=== PATIENT | female | born 1995 | race Caucasian/White ===

== ENCOUNTER → 2017-10-01 04:10 | Emergency (ER) | payer OTHER ==
[~2017-10-01 04:10] MED LIST: Al Hydrox/Mg Hydrox/Simet LIQ* 30 ML UDC PO ONE; Lidocaine 2% VISCOUS* 15 ML UDC PO ONE; Metoclopramide IV* 5 MG/ML 2 ML VIAL IV ONE; Morphine INJ* 2 MG/ML 1 ML SYRINGE (TWO MG - NEW SYRINGE VERSION) IV ONE; NS 0.9% 1000 ML* 1,000 ML IV ONE; Pantoprazole IV* 40 MG IV ONE; Potassium Chlor TAB* 20 MEQ TAB.ER PO ONE
--- NOTE | 2017-10-01 04:28 | ED ---
Abdominal Pain/Female - HPI Summary HPI Summary: This is scribe Be Page documenting for attending Humble Lai MD. A 21 y/o female presents to ED c/o epigastric abdominal pain reaching 10/10 in severity. Additionally c/o chest and back pain. As per triage, "Pt c/o epigastric pain that woke her up this morning. Pt attempted to drink water and baking soda mixture with no relief". According to the patient, she has been experiencing severe abdominal pain since 319 as it woke her up from her sleep. Now the pain which is originating from her abdomen is radiating to her chest and lower back. Pt denies any vomiting or diarrhea. No prior surgeries. Patient took no medications for pain except baking soda and water as she thought it was heartburn. Pt ate salmon, rice and potatoes for dinner. PMHx of depression and anxiety, currently makes Lexapro 5 mg daily. I, Dr. Lai, personally performed the services described in this documentation as scribed in my presence and it is both accurate and complete. - History of Current Complaint Chief Complaint: EDAbdPain Stated Complaint: ABD PAIN Time Seen by Provider: 10/01/17 04:17 Hx Obtained From: Patient Onset/Duration: Sudden Onset, Lasting Hours, Still Present, Worse Since - Onset Timing: Constant Severity Initially: Severe Severity Currently: Severe Pain Intensity: 10 Pain Scale Used: 0-10 Numeric Location: Epigastric Radiates: Yes Radiates to: Back - Lower, Chest Aggravating Factor(s): Nothing Alleviating Factor(s): Nothing Associated Signs and Symptoms: Positive: Chest Pain, Back Pain. Negative: Vomiting, Diarrhea Allergies/Adverse Reactions: Allergies Allergy/AdvReac Type Severity Reaction Status Date / Time latex Allergy Rash Verified 10/01/17 04:15 PMH/Surg Hx/FS Hx/Imm Hx Endocrine/Hematology History: Denies: Hx Diabetes Cardiovascular History: Denies: Hx Hypertension Psychiatric History: Reports: Hx Anxiety, Hx Depression Infectious Disease History: No Infectious Disease History: Reports: Traveled Outside the in Last 30 Days - [place] - Family History Known Family History: Positive: Other - RA in mother and materal grandmother - Social History Alcohol Use: Occasionally Hx Substance Use: No Substance Use Type: Reports: None Hx Tobacco Use: No Smoking Status (MU): Never Smoked Tobacco Review of Systems Negative: Fever Positive: Chest Pain Positive: Abdominal Pain. Negative: Vomiting, Diarrhea Positive: Other - POSITIVE: Back pain All Other Systems Reviewed And Are Negative: Yes Physical Exam - Summary Physical Exam Summary: VITAL SIGNS: Reviewed. GENERAL: Patient is a well-developed and nourished female who is lying comfortable in the stretcher. Patient is not in any acute respiratory distress. HEAD AND FACE: No signs of trauma. No ecchymosis, hematomas or skull depressions. No sinus tenderness. EYES: PERRLA, EOMI x 2, No injected conjunctiva, no nystagmus. EARS: Hearing grossly intact. Ear canals and tympanic membranes are within normal limits. MOUTH: Oropharynx within normal limits. NECK: Supple, trachea is midline, no adenopathy, no JVD, no carotid bruit, no c- spine tenderness, neck with full ROM. CHEST: Symmetric, no tenderness at palpation LUNGS: Clear to auscultation bilaterally. No wheezing or crackles. CVS: Regular rate and rhythm, S1 and S2 present, no murmurs or gallops appreciated. ABDOMEN: Soft, epigastric tenderness. No signs of distention. No rebound no guarding, and no masses palpated. Bowel sounds are normal. EXTREMITIES: FROM in all major joints, no edema, no cyanosis or clubbing. NEURO: Alert and oriented x 3. No acute neurological deficits. Speech is normal and follows commands. SKIN: Dry and warm Triage Information Reviewed: Yes Vital Signs On Initial Exam: Initial Vitals Temp Pulse Resp BP Pulse Ox 97.4 F 89 20 136/94 98 10/01/17 04:13 10/01/17 04:13 10/01/17 04:13 10/01/17 04:13 10/01/17 04:13 Vital Signs Reviewed: Yes Diagnostics - Vital Signs Vital Signs Temp Pulse Resp BP Pulse Ox 10/01/17 04:13 97.4 F 89 20 136/94 98 - Laboratory Result Diagrams: 10/01/17 04:35 10/01/17 04:35 Lab Statement: Any lab studies that have been ordered have been reviewed, and results considered in the medical decision making process. Re-Evaluation - Re-Evaluation First Eval Re-Evaluation Time: 05:23 Change: Improved Comment: Patient is feeling much better and her pain is gone. Abdominal Pain Fem Course/Dx - Course Course Of Treatment: A 21 y/o female presents to ED c/o epigastric abdominal pain reaching 10/10 in severity. Additionally c/o chest and back pain. Examination revealed epigastric tenderness. No laboratory scans were done. Blood work was done. In the ED course, the patient recieved Maalox, Xylocaine, Reglan, Protonix, Klor Con Er Tab and IV fluids. During reevaluation, the patient indicated that she was feeling better and pain was gone. Patient will be discharged with a diagnosis of GERD. Patient will be sent home with prescription of Pantoprazole. Patient is to follow up with PCP in 1-2 days. Patient is agreeable with this plan. - Diagnoses Provider Diagnoses: GERD (gastroesophageal reflux disease) Discharge - Sign-Out/Discharge Documenting (check all that apply): Patient Departure - DISCHARGE - Discharge Plan Condition: Stable Disposition: HOME Prescriptions: Pantoprazole TAB (NF) [Protonix TAB (NF)] 40 mg PO DAILY #30 tab Patient Education Materials: Gastroesophageal Reflux Disease (ED) Referrals: [facility] [Outside] - 2 Days Additional Instructions: FOLLOW UP WITH PRIMARY CARE OR [facility] IN 1-2 DAYS. TAKE PANTOPRAZOLE PRESCRIBED. RETURN TO ED FOR ANY NEW OR WORSENING SYMPTOMS.
[2017-10-01 04:43] LABS: ABS Basophils 0.1 10^3/ul (0-0.2); ABS Eosinophils 0.2 10^3/ul (0-0.6); ABS Lymphocytes 2.9 10^3/ul (1.0-4.8); ABS Monocytes 0.5 10^3/ul (0-0.8); ABS Neutrophils 2.4 10^3/ul (1.5-7.7); ABS Nucleated RBC 0 10^3/ul; Eosinophil % 2.7 % (0-6); Hematocrit 41 % (35-47); Hemoglobin 13.9 g/dl (12.0-16.0); Lymphocyte % 48.2 % (25-47); Mean Corpuscular HGB Conc 34 g/dl (31-36); Mean Corpuscular Hemoglobin 30 pg (27-31); Mean Corpuscular Volume 90 fL (80-97); Mean Platelet Volume 8.4 um3 (7.4-10.4); Nucleated Red Blood Cells % 0.1; Platelet Count 253 10^3/ul (150-450); Red Blood Count 4.58 10^6/ul (4.00-5.40); Red Cell Distribution Width 13 % (10.5-15); White Blood Count 6.1 10^3/ul (3.5-10.8)
[2017-10-01 04:59] LABS: EGFR Non-African American 118.3 (>60)
[2017-10-01 05:03] LABS: Urine Appearance Clear; Urine Blood 3+ (Negative); Urine Color Straw; Urine Ketones Negative (Negative); Urine Protein Negative (Negative); Urine Red Blood Cell Trace(0-2/hpf) (Absent); Urine Urobilinogen Negative (Negative); Urine White Blood Cell 3+(>20/hpf) (Absent)
[2017-10-01 05:39] VITALS: BP 118/59
== END | disposition home or self-care (01) ==
LOC: ED 04:10
DX: K21.9 Gastro-esophageal reflux disease without esophagitis (principal); R07.9 Chest pain, unspecified; M54.9 Dorsalgia, unspecified; R10.13 Epigastric pain
CPT/HCPCS: 36415; 80053; 81003; 81015; 82150; 83690; 83735; 84702; 85025; 86140; 87086; 96374; 96375; 99282; A9270-GY; J2270; J2765